=== PATIENT | male | born 1975 | race African-American/Black ===

== ENCOUNTER 2016-12-18 14:07 | Emergency (ER) | payer BC ==
[~2016-12-18] VITALS: Ht 185.4 cm; Wt 139.8 kg
[2016-12-18 14:08] VITALS: BP 144/99
== END 2016-12-18 14:58 | disposition home or self-care (01) ==
LOC: ED 14:55
DX: M54.31 Sciatica, right side (principal); F17.200 Nicotine dependence, unspecified, uncomplicated
CPT/HCPCS: 99283; J7512